=== PATIENT | female | born 1945 | race Caucasian/White ===

== ENCOUNTER → 2019-09-13 15:22 | Outpatient (CLI) | payer MEDICARE, SELFPAY ==
--- NOTE | 2019-09-13 15:25 | DI.MG.S_ITS ---
BILATERAL DIGITAL SCREENING MAMMOGRAM 3D/2D WITH CAD: 09/13/2019 CLINICAL: Routine screening. Comparison is made to exams dated: 05/22/2017 mammogram and 07/16/2018 mammogram - [facility]. The tissue of both breasts is heterogeneously dense. This may lower the sensitivity of mammography. Current study was also evaluated with a Computer Aided Detection (CAD) system. There are benign calcifications in both breasts. No significant masses, calcifications, or other findings are seen in either breast. There has been no significant interval change. IMPRESSION: There is no mammographic evidence of malignancy. A 1 year screening mammogram is recommended. This exam was interpreted at Station ID: [id number]. NOTE: For mammograms, a report in lay terms will be sent to the patient. Approximately 15% of breast malignancies will not be visualized mammographically. In the management of a palpable breast mass, a negative mammogram must not discourage biopsy of a clinically suspicious lesion. Electronically Signed By: Eliecer gurrola/shiva:09/15/2019 07:55:48 letter sent: Normal Exam ACR BI-RADS Category 2: Benign Finding(s) 3342F
== END ==
PROVIDERS: Visit Provider Physician Assistant Medical
DX: Z12.31 Encounter for screening mammogram for malignant neoplasm of breast (principal)
CPT/HCPCS: 77063; 77067

== ENCOUNTER 2023-05-21 07:15 | Day surgery (SDC) | payer MEDICARE, SELFPAY ==
[2023-05-16 11:32] VITALS: BMI 25.5
[2023-05-21] VITALS (14 sets, daily range): BP systolic 98–128; BP diastolic 45–74; PULSE 60–82; RESP 8–18; TEMP 35.9–37; O2SAT 91–96; BMI 28.3
[2023-05-21] MEDS: LACTATED RINGERS 1,000 ML 100 ML IV ×2 (07:43→09:04)
--- NOTE | 2023-05-21 07:55 | PM.PREOP ---
Pre-operative Note COVID-19 Criteria for continued procedure: Non-surgical alternatives not available or appropriate per current SOC Interval Note History & Physical reviewed/Exam performed by Physician: Yes Changes to H&P: No H&P completed within 30 days and has changed as indicated here:: 05/15/23
[2023-05-21 08:00] LABS: Blood Urea Nitrogen 10 mg/dL (7-17); Carbon Dioxide 27 mmol/L (22-32); Chloride 106 mmol/L (98-107); Estimated Glomerular Filt Rate > 60 mL/min (>60); Glucose 97 mg/dL (80-110); Potassium 4.4 mmol/L (3.4-5.1); Sodium 138 mmol/L (137-145)
[2023-05-21 08:01] LABS: HEMOLYSIS 58 (0-50)
[2023-05-21] MEDS: CEFAZOLIN 2 GM/100 ML PREMIX 100 ML IV (08:08)
--- NOTE | 2023-05-21 08:34 | SUR.OPER ---
Lithotomy on padded OR bed, head on pillow, arms secured on padded arm boards at <90 degrees abduction. Legs secured in padded yellow fins stirrups.
[2023-05-21] MEDS: BUPIVACAINE 0.25% (PF) 60 ML, EPINEPHrine 0.3 MG INJ (08:40)
[2023-05-21] MEDS: BUPIVACAINE 0.25% W/ EPI (PF) 10 ML VIAL INJ (09:15)
--- NOTE | 2023-05-21 10:02 | PM.GYNOP.1 ---
Operative Date/Time/Diagnoses Date of procedure: 05/21/23 Time of procedure: 09:45 Pre-op diagnosis: Symptomatic cystocele and rectocele Stress urinary incontinence Post-op diagnosis: same Procedure & Clinicians Procedure: Procedures Operation Date: 05/21/23 07:45 Actual Procedure Side Surgeon p Anterior/Posterior Repair Palak Perez MD s TVT w/ cystoscopy Palak Perez MD Indications: Symptomatic cystocele and rectocele Stress urinary incontinence Surgeon: Palak Perez Propellant Charge Loader: Pallavi Davidson Anesthesia Type: General and Local Operative Notes Findings: Second to third-degree cystocele Second to third-degree rectocele Increased urethrovesical angle with Valsalva TVT not in the bladder Closure Type: primary Specimen(s): none Applied: catheter (To continuous drainage) and other (Betadine moistened vaginal packing in place) Estimated blood loss (mL): 50 Blood products transfused: none Procedure in detail: The patient was taken to the operating room where she was placed in the dorsal supine position. After adequate LMA general anesthesia was achieved, she was placed in the dorsal lithotomy position, and prepped and draped in the usual sterile fashion. Narrow Allis clamps were placed at the apex of the cystocele. 6 cc of 0.25% Marcaine with epinephrine were injected submucosally. An incision was made with a # 10 blade between the 2 Allis clamps. Wide Allis clamps were placed in the midline of the cystocele, approximately 4. The mucosa was undermined using the Metzenbaum scissors and the wide Allis clamps were moved to the edges of the mucosa. The underlying fascia was dissected off of the mucosa using an open moistened Ray-Misty and a # 10 blade. Using 0 Vicryl suture, the fascia was reapproximated with horizontal mattress sutures. The excess vaginal mucosa was excised. The mucosa was closed using 2-0 Vicryl with simple interrupted sutures including the underlying fascia to close the space. The patient was placed flat on the table with her thighs parallel to the floor. A solution of 20 cc of 0.25% Marcaine was diluted with 80 cc of sterile injectable saline. 100 cc was placed in the space of Retzius behind the pubic symphysis using a #20 gauge spinal needle. The midline of the abdomen above the pubic symphysis was marked as well as 2 cm lateral on either side. Attention was then turned to the vagina where a weighted speculum was placed into the vagina. Allis clamps were placed 1-1/2 cm away from the urethral meatus lateral to the midline. 4 cc of 0.25% Marcaine with epinephrine were injected submucosally. A 1.5 cm incision was made. This was dissected out laterally with the Metzenbaum scissors. With a rigid catheter in the bladder and the bladder neck retracted away from the patient's right side, 10 cc of 0.25% Marcaine was injected into the proposed space for the TVT. This was repeated on the patient's left side with the bladder neck retracted away from the patient's left side. Hegar dilators # 3, # 4, and # 5 were used to dissect out the proposed space on either side with the bladder neck retracted away from that side. The TVT was placed on the applicator. Directing the TVT applicator towards the patient's right shoulder with the bladder neck retracted away from the patient's right side, the urogenital diaphragm was perforated and the applicator brought up behind the pubic symphysis approximately 2 cm to the right of midline the skin was nicked with a 15. Blade and the plastic applicator was grasped with a Zelalem. This was repeated on the patient's left side with the bladder neck retracted away from the patient's left side. The rigid catheter portion of the Brannon was removed. The bladder was filled with 240 cc of sterile water. A cystoscopy was performed. The bubble was at the dome of the bladder. The TVT had not perforated the bladder. The cystoscope was removed from the bladder. The TVT was pulled with care not to over tighten. A pickup was placed between the urethra and the TVT. The plastic wrapping was removed with hemostats with care not to over tighten the TVT. The TVT was cut below the skin line again with care not to over tighten. The mucosa in the vagina was closed with 3-0 Vicryl in a running interlocking fashion. The weighted speculum was removed from the vagina. The rectocele was grasped at the apex and at the introitus with narrow Allis clamps. 10 cc of 0.25% Marcaine with epinephrine were injected submucosally. An incision was made between the 2 Allis clamps and the wide Allis clamps were placed on the mucosal edges. The underlying fascia was dissected off of the mucosa using an open moistened Ray-Misty and a #10 scalpel. The fascia was reapproximated with 0 Vicryl in horizontal mattress sutures. The excess vaginal mucosa was excised. The mucosa was closed using 2-0 Vicryl with simple interrupted sutures including the underlying fascia to close the space. No perineorrhaphy was performed due to normal caliber of genital hiatus. A Betadine moistened sponge stick was placed into the vagina. A Brannon catheter was placed into the bladder and there was clear drainage. Sponge, lap, and instrument counts were correct x2. The patient tolerated the procedure well, and was taken to PACU in stable condition. Complications: none Post-operative Condition: stable Disposition: PACU Plan for aftercare: To acute care after recovery
[2023-05-21] MEDS: LACTATED RINGERS 1,000 ML 65 ML IV ×2 (10:30→21:36)
[2023-05-21] MEDS: ACETAMINOPHEN 325 MG TABLET 650 MG PO ×3 (11:52→23:57)
[2023-05-21] MEDS: IBUPROFEN 600 MG TABLET PO ×2 (15:25→21:08)
--- NOTE | 2023-05-21 17:31 | PC.NURSE ---
Day shift: Pt arrived from PACU at 1430. BP hypotensive, asymptomatic. Notified MD Perez, no action needed. No excessive vaginal bleeding or tachycardia. Pt has Brannon and vaginal packing. Pt OOB at 1700 with no dizziness. Tolerating diet. No pain. No nausea. 2 small incisions above anterior pubic bone have skin glue - clean and dry. Will continue to monitor.
[2023-05-21] MEDS: buPROPion SR 150 MG TAB PO (21:08)
[2023-05-21] MEDS: DOCUSATE 100 MG CAPSULE 200 MG PO (21:08)
[2023-05-22 00:01] VITALS: BP 118/54; PULSE 66; RESP 18; TEMP 36.3; O2SAT 97
[2023-05-22 05:32] LABS: Add Manual Diff / Slide Review NO; Basophils Absolute Auto 0 /uL (0-100); Basophils Percent Auto 0.2 % (0-2); Eosinophils Absolute Auto 0 /uL (0-450); Hematocrit 40.4 % (36-46); Hemoglobin 13.6 g/dL (12.0-16.0); Lymphocytes Absolute Auto 1100 /uL (1100-4500); Lymphocytes Percent Auto 7.8 % (25-40); Mean Corpuscular HGB Conc 33.6 % (30-36); Mean Corpuscular Hemoglobin 31.6 PG (26-34); Mean Corpuscular Volume 94.1 fL (80-100); Monocytes Absolute Auto 500 /uL (0-900); Monocytes Percent Auto 3.8 % (3-14); Neutrophils Absolute Auto 12100 /uL (1500-7000); Neutrophils Percent Auto 88.2 % (50-75); Platelet Count 202 X10^3/uL (150-400); Red Blood Cell Count 4.29 X10^6/uL (4.0-5.2); Red Cell Distribution Width 13.4 % (11.6-14.8); White Blood Cell Count 13.8 X10^3/uL (4.5-11.0)
[2023-05-22] MEDS: ACETAMINOPHEN 325 MG TABLET 650 MG PO ×2 (06:23→12:13)
[2023-05-22 07:00] VITALS: BP 110/50; PULSE 61; RESP 18; TEMP 36.4; O2SAT 93
[2023-05-22] MEDS: BUDESONIDE 0.5 MG/2 ML NEB INH (08:31)
[2023-05-22] MEDS: LORATADINE 10 MG TABLET PO (09:18)
[2023-05-22] MEDS: buPROPion SR 150 MG TAB PO (09:18)
[2023-05-22] MEDS: SPIRONOLACTONE 25 MG TABLET PO (09:18)
[2023-05-22] MEDS: DOCUSATE 100 MG CAPSULE 200 MG PO (09:18)
[2023-05-22] MEDS: IBUPROFEN 600 MG TABLET PO (09:27)
--- NOTE | 2023-05-22 11:27 | PC.NURSE ---
Addendum entered by Ricki Dickerson R.N. 05/22/23 12:02: Results of voiding trial and PVR's called to Dr. Perez. Pt up and about in room without difficulty. Expressing desire to go home. Original Note: Pt A&O morning meds given, Pt taking b'fast. offers no overt issues. Brannon and packing removed end on noc shift. Pt' initial void and PVR reported to Dr. Perez second void [address] Perez aware and wants her to void and be rechecked.
[2023-05-22] MEDS: EXT REL PELLETS PO (11:49)
[2023-05-22] MEDS: VERAPAMIL 240 MG PO (11:49)
--- NOTE | 2023-05-28 07:46 | PM.DS.1 ---
History of Present Illness History of Present Illness Date Patient Seen: 05/22/23 Time Patient Seen: 13:15 Chief complaint: Colporrhaphy/Tensionless Vaginal Tape-Suspension Narrative: Patient is a 77-year-old postop day #1 status post anterior and posterior repair with TVT and cystoscopy. The Brannon catheter and vaginal packing were removed at 6:00 a.m. this morning. Minimal bleeding. Patient was initially not voiding very large amounts and had high postvoid residuals. She then voided 700 cc with 100 cc postvoid. Bleeding was minimal. Pain was very well controlled. She was ambulating independently. She was tolerating a diet without nausea and vomiting. Discharge Providers Provider Discharge Date: 05/22/23 Primary care physician: Rossy Slaughter PA-C Discharge provider: Palak Perez MD Exam Vital Signs (past 8 hours): Fraction of Inspired Oxygen 21 SaO2/FiO2 Ratio 452 Oxygen Delivery Method Room Air Oxygen Flow Rate 0 Narrative Exam Narrative: Generally: Patient is sitting up in bed, no acute distress Lungs: Clear to auscultation bilaterally Cardiovascular: Regular rate and rhythm Abdomen: Suprapubic incisions intact with surgical glue Perineum: Dry Objective Labs 05/22/23 04:44 05/21/23 07:48 [facility] Medical History (Updated 05/21/23 @ 05:46 by Palak Perez MD) Allergies Asthma Chicken pox (~1949) Eczema (~1966) Endometriosis (~1969) Fibroids (~1969) Heavy menstrual period Hepatitis (~1970) Hepatitis C (~1970) Measles (~1950) Mumps (~1950) Painful menstrual periods Surgical History (Updated 04/18/23 @ 11:23 by Palak Perez MD) Anesthesia History of section History of foot surgery (~1981) History of hysterectomy (~1987) S/P wisdom tooth extraction Family History (Updated 03/13/23 @ 20:56 by Anabell Ribeiro) Mother Cancer Brother Cancer Grandfather Stroke Grandmother Cancer Aunt Pancreatic cancer Family/Other Pancreatic cancer Social History household members: none Smoking Status: Current every day smoker alcohol intake: current Discharge Assessment & Plan Assessment and Plan Assessment: Assessment: 77-year-old postop day #1 status post anterior and posterior repair/TVT with cystoscopy doing very well Emptying her bladder Plan of Treatment: Plan: Discharge to home Recommend emptying her bladder every 2 and half to 3 hours Patient is to call with fever, chills, redness or drainage around the suprapubic incisions, or bleeding vaginally than spotting to light Discharge Plan Discharge Plan Patient Disposition: Home Provider Discharge Comment: Call with fever, chills, redness or drainage around the suprapubic incisions, or bleeding vaginally more than spotting to light Ibuprofen 600 mg every 6 hours as needed Tylenol 650 mg every 6 hours as needed Stool softener and till bowel returns to normal Empty bladder about every 3 to 3-1/2 hours and once in the middle of the night Discharge orders & Medications Discharge Orders: Discharge (Order); Ordered 05/22/23 Ordered By: Palak Perez Prescriptions: Continued verapamil 240 mg capsule,ext rel. pellets 24 hr 240 mg PO BID bupropion HCl 150 mg tablet extended release 24 hr 150 mg PO BID spironolactone 25 mg tablet 25 mg PO DAILY fluticasone propion-salmeterol [Wixela Inhub] 500-50 mcg/dose blister with device 1 inh inhalation BID zolpidem 10 mg tablet 10 mg PO DAILY cetirizine [Zyrtec] 10 mg Tablet 10 mg PO DAILY albuterol sulfate 90 mcg/actuation Hfa Aerosol Inhaler 1 puff INHALATION QID PRN (Reason: SOB) Discontinued estradiol [Estrace] 0.01 % (0.1 mg/gram) cream 0.5 g vaginal DAILY Qty: 42.5 3RF Rx Instructions: 0.5gm in vagina and small amount at opening every day for 14 days and then twice a week Follow up/Referrals: Palak Perez MD [Physician] - As previously scheduled (Patient has 2 in 6 week postop visits already scheduled) Diet/Activity/Treatments Diet: Regular Activity: No heavy lifting No lifting more than 8 lb, or a gal of milk Skin/Wound/Dressing Care Report to your healthcare provider any signs of infection, such as:: chills, fever, increased pain, unusual drainage and unusual redness Visit Report/Discharge Packet Instructions: Cystocele and Rectocele Repair Stand Alone Forms: Patient Portal/API, Surgery Discharge Discharge Data Primary Care Provider: Rossy Slaughter Attending Provider: Palak Perez
== END 2023-05-22 13:02 | disposition home or self-care (01) ==
LOC: OR 07:16 → AC 10:41
PROVIDERS: PCP Physician Assistant Medical; Referring Provider Obstetrics & Gynecology; Visit Provider Obstetrics & Gynecology
PROC: (CPT 57260; principal; 2023-05-21 07:45)
PROC: 0TSD0ZZ Reposition Urethra, Open Approach (ICD-10-PCS; CPT 57260; 2023-05-21 07:45)
DX: N81.10 Cystocele, unspecified (principal); N81.6 Rectocele; N39.3 Stress incontinence (female) (male)
CPT/HCPCS: 57260; 57288; 36415; 80048; 85025; 94640; C1771; J0171; J0690; J1100; J1170; J2405; J2704; J3010

== ENCOUNTER → 2024-01-04 10:53 | Outpatient (CLI) | payer MEDICARE, SELFPAY ==
[2023-05-21 10:58] VITALS: BMI 28.3
[2024-01-04 13:58] LABS: Cancer Antigen 125 9.4 U/mL (0-35)
[2024-01-10 12:52] LABS: Human Epididymis Prot 4 96.2 pmol/L (0.0-96.9)
== END ==
PROVIDERS: PCP Physician Assistant Medical; Referring Provider Obstetrics & Gynecology; Visit Provider Obstetrics & Gynecology
DX: N83.8 Other noninflammatory disorders of ovary, fallopian tube and broad ligament (principal)
CPT/HCPCS: 36415; 86304; 86305

== ENCOUNTER 2024-02-29 09:29 | Day surgery (SDC) | payer MEDICARE, SELFPAY ==
[2024-01-16 15:28] VITALS: BMI 28.3
[2024-02-25 14:52] VITALS: BMI 25.4
[2024-02-29] VITALS (11 sets, daily range): BP systolic 122–144; BP diastolic 61–72; PULSE 68–92; RESP 12–19; TEMP 36.3–36.7; O2SAT 95–98; BMI 25.4
[2024-02-29] MEDS: LACTATED RINGERS 1,000 ML 42 ML IV (10:31)
--- NOTE | 2024-02-29 11:18 | P.HPOB_ITS ---
History of Present Illness History of Present Illness Narrative: Kate Nathan is a 78 year old female 3 para 2 with a persistent right ovarian mass. She presents for a laparoscopic removal of the right tube and ovary. Possible removal of left tube. Patient had a previous hysterectomy and is not sure if her left tube is still there. She has had her left ovary removed in her 40s. [facility] Medical History (Updated 02/04/24 @ 01:15 by Palak Perez MD) Asthma Eczema (~1966) Allergies Mumps (~1949) Measles (~1949) Hepatitis (~1969) Chicken pox (~1949) Painful menstrual periods Heavy menstrual period Fibroids (~1969) Endometriosis (~1969) Hepatitis C (~1969) Surgical History (Updated 02/25/24 @ 14:56 by Macrina Schaefer RN) History of gynecologic surgery (05/21/23) S/P wisdom tooth extraction Anesthesia History of foot surgery (~1981) History of hysterectomy (~1987) History of section Family History (Updated 03/13/23 @ 20:56 by Anabell Ribeiro) Mother Cancer Brother Cancer Grandfather Stroke Grandmother Cancer Aunt Pancreatic cancer Family/Other Pancreatic cancer Social History household members: none Smoking Status: Current every day smoker alcohol intake: current Meds Home Medications and Allergies Home Medications Medication Instructions Recorded Confirmed Type bupropion HCl 150 mg 24 hr tablet, 150 mg PO BID 03/14/23 02/29/24 History extended release fluticasone 500 mcg-salmeterol 50 1 inh inhalation BID 03/14/23 02/29/24 History mcg/dose blistr powdr for inhalation (Wixela Inhub) spironolactone 25 mg tablet 25 mg PO DAILY 03/14/23 02/29/24 History verapamil 240 mg 24 hr 240 mg PO BID 03/14/23 02/29/24 History capsule,extended release zolpidem 10 mg tablet 5 mg PO DAILY 03/14/23 02/29/24 History albuterol sulfate 90 mcg/actuation 1 puff inhalation QID PRN SOB 05/21/23 02/29/24 History aerosol inhaler cetirizine 10 mg tablet (Zyrtec) 10 mg PO DAILY 05/21/23 02/29/24 History Allergies Allergy/AdvReac Type Severity Reaction Status Date / Time Animals and dust Allergy Intermediate Nose/eyes Uncoded 01/04/24 10:08 run, headache Exam Vital Signs (past 8 hours): - 02/29/24 10:19 Temperature 97.9 F Pulse Rate 74 Respiratory Rate 17 Blood Pressure 122/63 Pulse Oximetry 96 Oxygen Delivery Method Room Air Oxygen Delivery Method Room Air Narrative Exam Narrative: HEENT: No thyromegaly, no anterior cervical or supraclavicular lymphadenopathy. Lungs:Clear to auscultation bilaterally, no wheezes. Cardiovascular: Regular rate and rhythm, no murmurs, rubs, or gallops. Abdomen: Well-healed scars. No hepatosplenomegaly. No masses palpable. External genitalia: Normal Vagina: Normal Cervix: Normal Bimanual exam: 5 Week size uterus. Mobile. Right adnexal fullness and tenderness. Extremities: No edema Assessment & Plan Assessment & Plan narrative: Assessment: 78-year-old 3 para 2 with a persistent right ovarian mass History of endometriosis, status post hysterectomy and removal of left ovary Plan: Laparoscopic right salpingo-oophorectomy, possible left salpingectomy if that tube remains The risks, benefits, and alternatives to the procedure were explained to the patient. The risks including bleeding, infection, injury to the bowel, bladder, or ureters. She understands all of these risks and agrees to proceed. A full par Q was held and consent form was signed. Time Spent With Patient Time with patient: less than 30 minutes
--- NOTE | 2024-02-29 11:20 | PM.PREOP ---
Pre-operative Note Interval Note History & Physical reviewed/Exam performed by Physician: Yes Changes to H&P: No H&P completed within 30 days and has changed as indicated here:: 02/29/24
[2024-02-29] MEDS: BUPIVACAINE 0.5% W/ EPI (PF) 30 ML VIAL INJ (12:32)
--- NOTE | 2024-02-29 12:42 | PM.GYNOP.1 ---
Operative Date/Time/Diagnoses Date of procedure: 02/29/24 Time of procedure: 12:42 Pre-op diagnosis: Persistent right ovarian cyst Post-op diagnosis: same Procedure & Clinicians Procedure: Procedures Operation Date: 02/29/24 11:15 Actual Procedure Side Surgeon p DIAGNOSTIC Laparoscopic LYSIS OF ADHESIONS Palak Perez MD Indications: 78-year-old with a persistent right ovarian cyst Surgeon: Palak Perez Anesthesia Type: General and Local Operative Notes Findings: Uterus surgically absent Left pelvic adhesions Adhesions between bladder and bowel Adhesions between right sidewall and bowel No right ovary or tube identified Appendix previously removed Normal liver and gallbladder Possible fluid collection in retroperitoneal space Closure Type: primary Specimen(s): none Estimated blood loss (mL): 5 Blood products transfused: none Procedure in detail: After informed consent was obtained, the patient was taken to the operating room where she was placed in the dorsal supine position. After adequate general endotracheal anesthesia was achieved, she was placed in the dorsal lithotomy position, and prepped and draped in the usual sterile fashion. A time-out was performed. A moistened sponge stick was placed into the vagina. Attention was then turned to the abdomen where 6 cc of 0.5% Marcaine with epinephrine were injected in the umbilical fold. A 5 mm incision was made. The Veress needle was placed into the peritoneal cavity, and its placement confirmed by aspiration and drop test. The abdominal cavity was insufflated with 3 L of CO2. The Veress needle was removed, and a 5 mm trocar was placed without difficulty. Two other incisions were made 4 cm lateral to the midline at the level of the umbilicus and 5 mm trocars were placed. 0.5% Marcaine was injected prior to the incisions. Using the probe the bowel was removed from the pelvis. There were found to be adhesions in the left pelvis such that the left tube and ovary were not visualized. There were adhesions between the bowel and the bladder and these were taken down using the endo Regino with cut and cautery. Care was taken to avoid cautery on the bowel. There were adhesions between the right pelvic sidewall and the bowel and these were also taken down using the endo Rgeino. The right ovary was not definitively identified. There was possibly a fluid collection in the retroperitoneal space behind where the right ovary would be expected to be seen. The liver and gallbladder were examined and were normal. The appendix was previously removed and there was a surgical clip visible. The pelvis was again inspected and there was no bleeding noted. The instruments were removed from the abdomen. The CO2 was allowed to escape. The incisions were closed with 4-0 Monocryl in a subcuticular fashion. Steri-Strips and Allevyn dressings were placed. The moistened sponge stick was removed from the vagina. Sponge, lap, and instrument counts were correct x2. The patient tolerated the procedure well, and was taken to PACU in stable condition. Complications: none Post-operative Condition: stable Disposition: PACU Plan for aftercare: Home after recovery
[2024-02-29] MEDS: ONDANSETRON 4 MG/2 ML INJ IV (13:20)
[2024-02-29] MEDS: ACETAMINOPHEN IV 1,000 MG/100 ML VIAL 400 MG IV (13:22)
[2024-02-29] MEDS: KETOROLAC 30 MG/ML VIAL 15 MG IV (13:22)
[2024-02-29] MEDS: HYDROMORPHONE 1 MG INJ IV (13:24)
[2024-02-29] MEDS: OXYCODONE IR 5 MG TABLET PO ×2 (13:36→14:32)
== END 2024-02-29 14:35 | disposition home or self-care (01) ==
PROVIDERS: PCP Physician Assistant Medical; Referring Provider Obstetrics & Gynecology; Visit Provider Obstetrics & Gynecology
PROC: (CPT 44180; principal; 2024-02-29 11:15)
DX: K66.0 Peritoneal adhesions (postprocedural) (postinfection) (principal)
CPT/HCPCS: 44180; 82962; J0136; J0330; J1170; J1885; J2405; J2704; J3010